=== PATIENT | male | born 1940 | race Caucasian/White ===

== ENCOUNTER 2016-12-15 08:01 | Emergency (ER) | payer MEDICARE ==
[~2016-12-15 08:01] MED LIST: ASPIRIN EC81 MG PO; CLOTRIMAZOLE10 MG PO; COZAAR100 MG PO; FLOMAX0.4 MG PO; HYDROCHLOROTHIA25 MG PO; HYDROCODON-ACE1 EAC2 PO; LACTINEX CHEWA1 EACH PO; LANTUS100 UNIT/1 SQ; LOMOTIL 2.5-0.1 EACH PO; MESTINON60 MG PO; MEVACOR10 MG PO; NOVOLOG MI100 UNIT/2 SQ; ONCE DAILY1 EACH PO; PLENDIL5 MG PO; POTASSIUM CHLO10 ME1 PO; PREDNISONE50 MG PO; PREVACID30 MG PO; TRIAMCINOLONE A80 G2 TOP; TYLENOL EXTRA500 MG PO; VITAMIN C1000 MG PO; VITAMIN D33000 UNIT PO; ZYRTEC10 MG PO
== END 2016-12-15 14:05 | disposition home or self-care (01) ==
LOC: ER 08:01
DX: H81.20 Vestibular neuronitis, unspecified ear (principal); I10 Essential (primary) hypertension; H26.9 Unspecified cataract; Z96.651 Presence of right artificial knee joint; Z87.442 Personal history of urinary calculi; Z79.4 Long term (current) use of insulin; Z79.82 Long term (current) use of aspirin; Z79.899 Other long term (current) drug therapy; Z88.1 Allergy status to other antibiotic agents; Z88.2 Allergy status to sulfonamides; Z88.8 Allergy status to other drugs, medicaments and biological substances; Z91.048 Other nonmedicinal substance allergy status
CPT/HCPCS: 36415; 70551; 96365; 96366